=== PATIENT | male | born 1955 | race Caucasian/White ===

== ENCOUNTER 2021-05-25 12:38 | Observation (INO) ==
[2021-05-25 13:48] LABS: ABS Eosinophils 0.1 10^3/ul (0-0.6); ABS Lymphocytes 1.2 10^3/ul (1.0-4.8); ABS Monocytes 0.5 10^3/ul (0-0.8); ABS Neutrophils 3.9 10^3/ul (1.5-7.7); Eosinophil % 1.9 %; Hematocrit 42 % (42-52); Hemoglobin 13.9 g/dL (14.0-18.0); Mean Corpuscular HGB Conc 33 g/dL (31-36); Mean Corpuscular Hemoglobin 30 pg (27-31); Mean Corpuscular Volume 91 fL (80-94); Mean Platelet Volume 7.9 fL (7.4-10.4); Nucleated Red Blood Cells % 0.1; Platelet Count 148 10^3/uL (150-450); Red Blood Count 4.57 10^6 /uL (4.18-5.48); Red Cell Distribution Width 16 % (10-15); White Blood Count 5.7 10^3/uL (3.5-10.8)
[2021-05-25 13:51] LABS: ALT 26 U/L (7-52); AST 33 U/L (13-39); Albumin 3.9 g/dL (3.2-5.2); Albumin/Globulin Ratio 1.3 (1-3); Alkaline Phosphatase 191 U/L (35-149); Anion Gap 6 mmol/L (2-11); Blood Urea Nitrogen 9 mg/dL (6-24); CO2 Carbon Dioxide 28 mmol/L (22-32); Calcium 8.8 mg/dL (8.6-10.3); Chloride 103 mmol/L (101-111); EGFR African American 136.9 (>60); EGFR Non-African American 113.2 (>60); Globulin 3.1 g/dL (2-4); Glucose 125 mg/dL (70-100); Magnesium 1.8 mg/dL (1.9-2.7); Potassium 4.5 mmol/L (3.5-5.0); Sodium 137 mmol/L (135-145)
[2021-05-25] MEDS ORDERED: Furosemide 40 mg/4 ml IV VIAL IV ONE (13:54)
[2021-05-25 14:28] LABS: Troponin I 0.04 ng/mL (<0.03)
[2021-05-25] MEDS ORDERED: Al Hydrox/Mg Hydrox/Simet LIQ 30 ML UDC PO PRN (14:42)
[2021-05-25 17:53] LABS: Troponin I 0.05 ng/mL (<0.03)
[2021-05-25] MEDS: Enoxaparin 40 MG/0.4 ML SYR SUBCUT SCH (20:11)
[2021-05-25 21:05] LABS: Troponin I 0.05 ng/mL (<0.03)
[2021-05-25] MEDS ORDERED: Magnesium Sulfate IV 1GM/100ML 1 GM/100 ML BAG IV ONE (23:42)
[2021-05-26 06:30] LABS: ABS Eosinophils 0.1 10^3/ul (0-0.6); ABS Monocytes 0.5 10^3/ul (0-0.8); ABS Neutrophils 4.2 10^3/ul (1.5-7.7); Eosinophil % 2.3 %; Hematocrit 42 % (42-52); Hemoglobin 14.1 g/dL (14.0-18.0); Lymphocyte % 17.1 %; Mean Corpuscular HGB Conc 33 g/dL (31-36); Mean Corpuscular Hemoglobin 30 pg (27-31); Mean Corpuscular Volume 91 fL (80-94); Mean Platelet Volume 7.1 fL (7.4-10.4); Platelet Count 155 10^3/uL (150-450); Red Blood Count 4.65 10^6 /uL (4.18-5.48); Red Cell Distribution Width 15 % (10-15); White Blood Count 5.8 10^3/uL (3.5-10.8)
[2021-05-26 06:49] LABS: ALT 22 U/L (7-52); AST 28 U/L (13-39); Albumin 3.6 g/dL (3.2-5.2); Albumin/Globulin Ratio 1.2 (1-3); Alkaline Phosphatase 184 U/L (35-149); Anion Gap 7 mmol/L (2-11); Blood Urea Nitrogen 8 mg/dL (6-24); CO2 Carbon Dioxide 30 mmol/L (22-32); Calcium 8.5 mg/dL (8.6-10.3); Chloride 101 mmol/L (101-111); Cholesterol 110 mg/dL; EGFR African American 144.1 (>60); EGFR Non-African American 119.1 (>60); Globulin 2.9 g/dL (2-4); Glucose 109 mg/dL (70-100); LDL Cholesterol 69 mg/dL; Magnesium 1.8 mg/dL (1.9-2.7); Potassium 3.7 mmol/L (3.5-5.0); Sodium 138 mmol/L (135-145); Total Protein 6.5 g/dL (6.4-8.9); Triglycerides 59 mg/dL
[2021-05-26] MEDS ORDERED: Magnesium Sulfate 2 gm BAG 2 GM/50 ML BAG IVPB ONE (10:15)
[2021-05-26] MEDS ORDERED: NS 0.9% 1000 ml BAG 1,000 ML IV SCH (10:30)
[2021-05-26 12:38] LABS: % Iron Saturation 19 % (15-55); Iron 69 ug/dL (50-212); Total Iron Binding Capacity 367 mcg/dL (250-450); Transferrin 262 mg/dL (203-362); Unsaturated Iron Binding < 352 ug/dL
[2021-05-26 12:52] LABS: TSH Ultra Thyroid Stim Horm 1.19 mcIU/mL (0.34-5.60)
[2021-05-26 12:54] LABS: Free T4 1.03 ng/dL (0.61-1.12)
[2021-05-26 12:58] LABS: Ferritin 78.1 ng/mL (24-336)
[2021-05-26] MEDS ORDERED: fentaNYL 100 mcg/2 ml 50 MCG/ML VIAL ONE (14:07)
[2021-05-26] MEDS ORDERED: Midazolam 5 mg/5 ml VIAL 1 mg/ml 5 ml VIAL (5 mg) ONE (14:07)
[2021-05-26] MEDS ORDERED: VERAPAMIL 2.5 MG/ML 2 ML VIAL ** 5 mg/2 ml ONE (14:08)
[2021-05-26] MEDS ORDERED: Heparin 2 UNITS/ML 1000 mls 3,000 ML IV ONE (14:08)
[2021-05-26] MEDS ORDERED: Heparin 1,000 UNIT/ML 10 ml (10,000 UNITS) CATHLAB/DIALYSIS ONE (14:08)
[2021-05-26] MEDS ORDERED: Lidocaine 1% VIAL 10 MG/ML VIAL ONE (14:09)
[2021-05-26] MEDS ORDERED: nitroGLYCERIN DRIP 25,000 MCG/250 ML BTL ONE (14:09)
[2021-05-26] MEDS ORDERED: Iohexol 350 (CONTRAST) 200 ML MDV IV ONE (14:09)
[2021-05-26 15:32] LABS: POC SO2 97 %
[2021-05-26 15:32] LABS: POC SO2 75 %
[2021-05-26 15:32] LABS: POC SO2 79 %
[2021-05-26] MEDS: Furosemide 40 mg/4 ml IV VIAL IV SLOW PU SCH (18:03)
[2021-05-26] MEDS: Enoxaparin 40 MG/0.4 ML SYR SUBCUT SCH (21:59)
[2021-05-27 06:12] LABS: Calcium 8.3 mg/dL (8.6-10.3); EGFR African American 157.5 (>60); EGFR Non-African American 130.2 (>60); Magnesium 1.9 mg/dL (1.9-2.7); Potassium 3.4 mmol/L (3.5-5.0)
[2021-05-27] MEDS: Furosemide 40 mg/4 ml IV VIAL IV SLOW PU SCH (08:05)
[2021-05-27] MEDS ORDERED: Potassium Chlor 20 meq TAB.ER PO ONE ×2 (08:27→23:00)
[2021-05-27 11:51] LABS: Direct Bilirubin 0.8 mg/dL (0.03-0.18); Indirect Bilirubin 1.3 mg/dL (0.3-1.0); Total Bilirubin 2.1 mg/dL (0.2-1.0)
[2021-05-27] MEDS: Enoxaparin 40 MG/0.4 ML SYR SUBCUT SCH (21:38)
[2021-05-27] MEDS ORDERED: Magnesium Sulfate 2 gm BAG 2 GM/50 ML BAG IVPB ONE (22:52)
[2021-05-28 15:30] VITALS: BP 150/62
== END 2021-05-28 16:28 | disposition home or self-care (01) ==
LOC: ED 12:38 → MEDTELE 12:38
PROVIDERS: ADMIT Pediatrics; ATTEND Hospitalist